=== PATIENT | female | born 1980 | race Caucasian/White ===

== ENCOUNTER 2024-01-25 11:46 | Day surgery (SDC) | payer BC ==
[2024-01-17 12:31] VITALS: BMI 21.4
[2024-01-25 13:08] VITALS: RESP 20; TEMP 97.2
[2024-01-25 13:30] VITALS: BP 104/62; PULSE 66
== END 2024-01-25 13:25 | disposition home or self-care (01) ==
LOC: FASU-ENDO 11:46
PROVIDERS: ATTEND Internal Medicine Gastroenterology
PROC: 0DBL8ZX Excision of Transverse Colon, Via Natural or Artificial Opening Endoscopic, Diagnostic (ICD-10-PCS; 2024-01-25)
PROC: 0DBP8ZX Excision of Rectum, Via Natural or Artificial Opening Endoscopic, Diagnostic (ICD-10-PCS; 2024-01-25)
PROC: 0DBM8ZX Excision of Descending Colon, Via Natural or Artificial Opening Endoscopic, Diagnostic (ICD-10-PCS; 2024-01-25)
PROC: 0DBK8ZX Excision of Ascending Colon, Via Natural or Artificial Opening Endoscopic, Diagnostic (ICD-10-PCS; principal; 2024-01-25 12:34)
DX: Z12.11 Encounter for screening for malignant neoplasm of colon (principal); K64.1 Second degree hemorrhoids; K64.8 Other hemorrhoids; R19.7 Diarrhea, unspecified
CPT/HCPCS: 81025; 88305-TC